=== PATIENT | male | born 1945 | race Caucasian/White ===

== ENCOUNTER 2019-06-15 19:30 | Emergency (ER) | payer OTHER, MEDICARE ==
[2019-06-15] MEDS ORDERED: KETOROLAC TROMETHAMINE 60 MG/2 ML SDV IM ONE (22:15)
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
[2019-06-16 02:04] VITALS: BP 152/83
== END 2019-06-16 02:11 | disposition home or self-care (01) ==
LOC: ER 19:30
DX: S32.010A Wedge compression fracture of first lumbar vertebra, initial encounter for closed fracture (principal); M54.5 Low back pain; M54.2 Cervicalgia; V87.7XXA Person injured in collision between other specified motor vehicles (traffic), initial encounter; V89.2XXA Person injured in unspecified motor-vehicle accident, traffic, initial encounter
CPT/HCPCS: 99284; 96372; 72050; 72110; 72131; J1885